=== PATIENT | female | born 1945 | race Caucasian/White ===

== ENCOUNTER 2016-11-07 09:53 | Day surgery (SDC) | payer MEDICARE, OTHER ==
[~2016-11-07 09:53] MED LIST: RINGERS SOLUTION,LACTATED 1,000 ML IV PRN
[2016-11-07] MEDS ORDERED: RINGERS SOLUTION,LACTATED 1,000 ML IV PRN (11:30)
[2016-11-07 12:33] VITALS: BP 127/45
--- NOTE | 2016-11-07 17:41 | OR ---
Operative Report - Dictated Report Narrative: OPERATIVE REPORT DATE OF OPERATION: 11/07/2016 PREOPERATIVE DIAGNOSIS: Familial polyposis, status post subtotal colectomy with ileostomy and Mary pouch POSTOPERATIVE DIAGNOSIS: Normal-appearing rectal pouch with the exception of mild benign appearing inflammation OPERATION: Flexible sigmoidoscopy SURGEON: Brook Gregory MD ANESTHESIA: NITIN Vaughan CRNA INDICATIONS FOR PROCEDURE: The patient is a 70-year-old female who is status post subtotal colectomy with ileostomy and Mary pouch performed for familial polyposis identified on colonoscopy in 2011. Her mother and brother both had colon cancer. The patient has had previous surveillance of the rectal stump in 2012 and 2014. FINDINGS: Benign appearing inflammation otherwise normal exam to 20 cm. NARRATIVE OF PROCEDURE: The patient was identified in the holding area, and prior to the administration of anesthetic, a multidisciplinary timeout was observed. With the patient in the left lateral position and after the administration of intravenous sedation, the perineum was inspected. There was no evidence of pilonidal disease or skin breakdown. The external appearance of the anus was normal. Sphincter tone was good. The flexible fiberoptic colonoscope was inserted into the rectum which was insufflated with air. There was mild inflammation and some residual mucus. The rectum and stump were then irrigated with saline. The scope was advanced proximally to the blind end of the Mary pouch. The scope was then slowly withdrawn and all mucosal surfaces were inspected. Aside from benign inflammation no polypoid changes or neoplastic-appearing lesions were observed. The area was irrigated and suctioned clean. The scope was removed and the procedure terminated. The patient tolerated the anesthetic and procedure well without complication and was transferred back to the ambulatory surgery area awake and in stable condition. The patient remained stable throughout a period of postoperative observation. She denied abdominal discomfort, was able to tolerate by mouth intake, and was up without assistance. I shared the operative findings with the patient and she was given copies of the photographs which appear in the medical record. She was discharged home with instructions not to engage in hazardous activity today , but may resume normal activity tomorrow, and advance diet as tolerated. She is to continue those medications as listed in the history and physical exam. RECOMMENDATION: Examination of the Mary pouch in 3 years depending upon findings and symptoms Reviewed and electronically signed
== END 2016-11-07 09:54 | disposition home or self-care (01) ==
LOC: AMB 09:53
PROVIDERS: ATTEND Surgery
PROC: 0DJD8ZZ Inspection of Lower Intestinal Tract, Via Natural or Artificial Opening Endoscopic (ICD-10-PCS; principal; 2016-11-07 10:15)
DX: Z12.11 Encounter for screening for malignant neoplasm of colon (principal); Z90.49 Acquired absence of other specified parts of digestive tract; I10 Essential (primary) hypertension; E11.9 Type 2 diabetes mellitus without complications; I25.10 Atherosclerotic heart disease of native coronary artery without angina pectoris; J45.909 Unspecified asthma, uncomplicated; K21.9 Gastro-esophageal reflux disease without esophagitis; Z80.0 Family history of malignant neoplasm of digestive organs; E66.01 Morbid (severe) obesity due to excess calories; Z68.42 Body mass index [BMI] 45.0-49.9, adult; Z87.891 Personal history of nicotine dependence; Z86.010 Personal history of colon polyps

== ENCOUNTER 2017-05-28 14:39 | Emergency (ER) | payer MEDICARE, OTHER ==
[2017-05-28 14:59] VITALS: BP 162/95
[2017-05-28] MEDS ORDERED: NAPROXEN SODIUM 550 MG TABLET PO ONE (16:07)
--- NOTE | 2017-05-28 16:14 | ERNOTE ---
Upper Extremity HPI - Narrative Date of Service: 05/28/17 - General Extremities Pain Location: shoulder: bilateral Time Seen by Provider: 05/28/17 15:22 Source: patient Exam Limitations: no limitations - Immun/Allergies/Home Medications Immunizations: IMMUNIZATION HX Immunizations Up to Date Yes Allergies/Adverse Reactions: Allergies Allergy/AdvReac Type Severity Reaction Status Date / Time Penicillins Allergy Severe Swelling Verified 11/07/16 10:27 of Tongue ertapenem sodium Allergy Mild Hives Verified 11/07/16 10:27 [From Invanz] enoxaparin sodium AdvReac Intermediate ulcers to Verified 11/07/16 10:27 [From Lovenox] abd, surgeries to debride heparin AdvReac Intermediate ULCERS, Verified 11/07/16 10:27 SURGERIES TO DEBRIDE etodolac [From Lodine] AdvReac Mild RASH Verified 11/07/16 10:27 meperidine HCl [From Demerol] AdvReac Mild UPSET Verified 11/07/16 10:27 STOMACH Home Medications: HOME MEDICATIONS Cetirizine HCl [Zyrtec] 10 mg PO HS 03/23/12 [Last Taken 01/20/14 21:00] Furosemide [Lasix] 20 mg PO DAILY 03/23/12 [Last Taken 01/20/14 09:00] Metoprolol Succinate [Toprol Xl] 50 mg PO BID 03/23/12 [Last Taken 06/05/15 07: 00] Albuterol Sulfate [Proair Hfa] 1 - 2 puff IH Q6H PRN 01/13/14 [Last Taken Unknown] Blood Sugar Diagnostic, Drum [Accu-Chek Compact Plus Strips] 1 each MC DAILY 09/21 [Last Taken 01/21/14 07:00] Calcium Carbonate/Vitamin D3 [Calcium 600 + Vit D 400 Tablet] 1 tab PO BID 01/13 [Last Taken 01/20/14 09:00] Fluticasone Propionate [Flonase] 2 spray NS DAILY PRN 01/13/14 [Last Taken 01/20 09:00] Docusate Sodium [Colace] 100 - 200 mg PO DAILY PRN 06/20/14 [Last Taken Unknown] Montelukast Sodium [Singulair] 10 mg PO HS 06/20/14 [Last Taken Unknown] Aspirin [Aspirin Enteric Coated] 325 mg PO DAILY 12/05/14 [Last Taken Unknown] Atorvastatin Calcium [Lipitor] 20 mg PO DAILY 05/22/15 [Last Taken Unknown] Ibuprofen [Motrin] 200 mg PO BID 05/22/15 [Last Taken Unknown] Ascorbic Acid [Vitamin C with Pearl Hips] 1,000 mg PO DAILY 10/31/16 [Last Taken Unknown] Cholecalciferol (Vitamin D3) [Vitamin D3] 1,000 unit PO DAILY 10/31/16 [Last Taken Unknown] Cyanocobalamin [Vitamin B-12] 1,000 mcg PO DAILY 10/31/16 [Last Taken Unknown] Fluticasone/Salmeterol [Advair 250-50 Diskus] 1 puff IH BID 10/31/16 [Last Taken Unknown] Multivitamins [Multivitamin Mikey] 1 cap PO DAILY 10/31/16 [Last Taken Unknown] Omeprazole Magnesium 20 mg PO DAILY 10/31/16 [Last Taken Unknown] Potassium 99 mg PO DAILY 10/31/16 [Last Taken Unknown] glipiZIDE [Glipizide] 5 mg PO DAILY 10/31/16 [Last Taken Unknown] Naproxen Sodium 275 mg PO BID #14 tablet 05/28/17 [Last Taken Unknown] - History of Present Illness Narrative: Pt presents with complaints of bilateral shoulder pain, left greater than right. She states he 2 months ago and she has been doing more lifting than usual which precipitated the pain. Denies any recent trauma or injury. Date (Duration): 05/14/17 Occurred: other - 2 weeks Location of Incident: home Severity: moderate Method of Injury: Reports: no apparent injury Modifying Factors - (Improves): Reports: immobilization Modifying Factors - (Worsens): Reports: movement Associated Symptoms: Denies: tingling, weakness, numbness distally, loss of feeling, loss of power (rt arm), loss of power (lt arm) Other Injuries: Reports: none Prior Treament: Reports: similar symptoms before Review of Systems - Review of Systems Constitutional: Present: no symptoms reported EYE: Present: no symptoms reported ENT: Present: no symptoms reported Respiratory: Present: no symptoms reported Cardiology: Present: no symptoms reported Gastrointestinal/Abdominal: Present: no symptoms reported Genitourinary: Present: no symptoms reported Musculoskeletal: Present: See HPI, joint pain Neurological: Present: no symptoms reported Endocrine: Present: no symptoms reported Hematologic/Lymphatic: Present: no symptoms reported Psych: Present: no symptoms reported - Patient's Past Medical History Patient History - Medical: Diabetes Type 2, GERD Patient History - Cardiac/Respiratory: Coronary Heart Disease, Hypertension, Hyperlipidemia Patient History - Cancer: Ovarian Patient History - Surgical Procedures: Cataracts, Colon Resection, Colonoscopy, Cardiac stent, EGD, Hysterectomy, Orthopedic Patient History - Other: None LMP (females 10-50): Menopausal - Family History Mother Family History - Medical: , Diabetes Type 2 Family History - Cardiac/Respiratory: Coronary Heart Disease, CVA/Stroke, Hypertension Family History - Cancer: Colon, Kidney Father Family History - Medical: , No pertinent hx Family History - Cardiac/Respiratory: Myocardial Infarction Family History - Cancer: No pertinent family hx Brother Family History - Medical: , No pertinent hx Family History - Cardiac/Respiratory: Myocardial Infarction Family History - Cancer: Colon - Social History Living Situations: home Abuse History: No History of abuse Psych History: No pertinent hx Smoking Status: Never smoker Alcohol Use: none Drug Use: none - Immunizations Immunizations Up to Date: Yes Physical Exam - Physical Exam General Appearance: Present: wd/wn, alert, no apparent distress, obese Head Exam: Present: normal inspection, no evidence of injury Eye Exam: Normal inspection: bilateral Ears, Nose, Throat: Present: normal ENT inspection Neck: Present: normal inspection Respiratory: Present: no respiratory distress, normal breath sounds, no accessory muscle use, chest nontender, lungs clear, decreased breath sounds Cardiovascular/Chest: Present: regular rate, rhythm, no murmur, normal peripheral pulses Gastrointestinal/Abdominal: Present: normal bowel sounds, nontender Back Exam: Present: normal inspection, normal range of motion, no vertebral tenderness Extremity Exam: Present: normal inspection, normal except -, other - pain with ROM. Limited ROM to left shoulder due to pain. Neurological Exam: Present: alert, oriented, normal mood/affect, no motor/ sensory deficits Skin Exam: Present: normal color, warm/dry Lymphatic Exam: Present: no adenopathy ED Progress - Vital Signs Patient's Vital Signs:: I have reviewed the patient's vital signs. Vital Signs: Vital Signs 05/28/17 14:51 Temperature 36.4 C L Pulse Rate 79 Respiratory 16 Rate Blood Pressure 162/95 - Progress/Reassessment Chief Complaint: Shoulder Injury/Pain Progress:: Unchanged Plan - Plan Plan: I suspect that this is due to arthritis as well and pain due to overuse given patients reports of having to lift their dog from floor to her bed since her husbands passing. She did not have any recent injury or falls which would warrant an xray, she will be DC's on a short NSAID with instructions to follow up with her PCP if she does not improve following treatment. Departure Clinical Impression: Arthritis Shoulder pain, bilateral Qualifiers: Chronicity: acute Qualified Code(s): M25.511 - Pain in right shoulder - Departure Disposition: Home self-care Condition: Good Instructions: Arthritis Additional Instructions: As discussed try to limit lifting of your animal. Rest and apply heat as needed to assist with comfort. Follow up with your primary care provider if your symptoms do not improve or worsen. Referrals: Kadi Dumont MD [Primary Care Provider] - Prescriptions: Naproxen Sodium 275 mg PO BID #14 tablet
[2017-05-28] MEDS ORDERED: NAPROXEN SODIUM 550 MG TABLET ONE (16:48)
== END 2017-05-28 16:50 | disposition home or self-care (01) ==
LOC: ER 14:39
DX: M25.512 Pain in left shoulder (principal); M25.511 Pain in right shoulder; M19.90 Unspecified osteoarthritis, unspecified site; Z85.43 Personal history of malignant neoplasm of ovary; Z95.5 Presence of coronary angioplasty implant and graft

== ENCOUNTER 2020-07-25 15:26 | Inpatient (IN) ==
[2020-07-25] MEDS ORDERED: NORMAL SALINE 1,000 ML IV ONE (15:58)
[2020-07-25] MEDS ORDERED: cefTRIAXone SODIUM 1,000 MG/100 ML BAG IV ONE (15:58)
[2020-07-25] MEDS ORDERED: AZITHROMYCIN 250 MG TABLET PO ONE (15:58)
[2020-07-25 16:17] LABS: Hematocrit 37.6 % (37.0-47.0); Hemoglobin 11.7 gm/dL (12.5-16.0); Mean Cell Volume 89.1 fl (78-100); Mean Corpuscular Hemoglobin 27.7 pg (27-31); Mean Corpuscular Hgb Conc 31.1 g/dl (32-36); Mean Platelet Volume 8.5 fl (8-12.5); Neutrophil % 86.3 % (42-75.0); Platelet Count 259 K/mm3 (150-450); Red Blood Count 4.22 M/mm3 (4.2-5.4); Red Cell Distribution Width 13.8 % (11.5-14.0); White Blood Count 5.8 K/mm3 (4.0-10.5)
[2020-07-25 16:35] LABS: Troponin I Less than 0.017 ng/mL (0.00-0.10)
[2020-07-25 16:38] LABS: ALT 31 U/L (19-67); AST 56 U/L (0-48); Albumin * 2.8 gm/dl (3.4-5.0); Alkaline Phosphatase * 120 U/L (50-170); Anion Gap 14.6 mmol/L (6.8-13.8); BNP * 139 pg/mL (5-325); BUN/Creatinine Ratio 11.1 (9.0-21.6); Bilirubin, Total 0.6 mg/dL (0.0-1.1); Blood Urea Nitrogen 13 mg/dL (3-23); CRP 12.5 mg/dL (0.0-0.9); Ca. Corrected For Albumin 9.5 mg/dL (8.4-10.2); Calcium * 8.9 mg/dL (7.9-10.9); Carbon Dioxide 27.1 mmol/L (24-32.6); Chloride 102 mmol/L (97-106); Glucose * 126 mg/dL (70-110); Potassium 3.7 mmol/L (3.4-4.6); Sodium 140 mmol/L (132-142); Total Protein 7.6 gm/dL (6.2-8.2)
--- NOTE | 2020-07-25 18:06 | ERNOTE ---
Dyspnea - Date Date of Service: 07/25/20 - General Presenting Symptoms: shortness of breath Time Seen by Provider: 07/25/20 15:44 Source: patient Exam Limitations: no limitations - Immun/Allergies/Home Medications Immunizations: IMMUNIZATION HX Immunizations Up to Date Yes Immunizations Comment Received full COVID vaccine History of Influenza Vaccine Yes Hx Pneumococcal Vaccination Yes Allergies/Adverse Reactions: Allergies Penicillins Allergy (Severe, Verified 07/25/20 15:53) Swelling of Tongue ertapenem sodium [From Invanz] Allergy (Mild, Verified 07/25/20 15:53) Hives grass pollen Allergy (Verified 07/25/20 15:53) rhinitis house dust Allergy (Verified 07/25/20 15:53) rhinitis mold Allergy (Verified 07/25/20 15:53) rhinitis enoxaparin sodium [From Lovenox] Adverse Reaction (Intermediate, Verified 07/25/20 15:53) ulcers to abd, surgeries to debride heparin Adverse Reaction (Intermediate, Verified 07/25/20 15:53) ULCERS, SURGERIES TO DEBRIDE etodolac [From Lodine] Adverse Reaction (Mild, Verified 07/25/20 15:53) RASH meperidine HCl [From Demerol] Adverse Reaction (Mild, Verified 07/25/20 15:53) UPSET STOMACH Home Medications: HOME MEDICATIONS Cetirizine HCl [Zyrtec] 10 mg PO HS 03/23/12 [Last Taken 01/20/14 21:00] Furosemide [Lasix] 20 mg PO DAILY 03/23/12 [Last Taken 01/20/14 09:00] Albuterol Sulfate [Proair Hfa] 1 - 2 puff IH Q6H PRN 01/13/14 [Last Taken Unknown] Blood Sugar Diagnostic, Drum [Accu-Chek Compact Plus Strips] 1 ea MC DAILY 01/13/14 [Last Taken 01/21/14 07:00] Calcium Carbonate/Vitamin D3 [Calcium 600 + Vit D 400 Tablet] 1 tab PO BID 01/13/14 [Last Taken 01/20/14 09:00] Montelukast Sodium [Singulair] 10 mg PO HS 06/20/14 [Last Taken Unknown] Aspirin [Aspirin Enteric Coated] 325 mg PO DAILY 12/05/14 [Last Taken Unknown] Atorvastatin Calcium [Lipitor] 20 mg PO DAILY 05/22/15 [Last Taken Unknown] Ibuprofen [Motrin] 200 mg PO BID PRN 05/22/15 [Last Taken Unknown] Ascorbic Acid [Vitamin C with Pearl Hips] 1,000 mg PO DAILY 10/31/16 [Last Taken Unknown] Cholecalciferol (Vitamin D3) [Vitamin D3] 1,000 unit PO DAILY 10/31/16 [Last Taken Unknown] Cyanocobalamin [Vitamin B-12] 1,000 mcg PO DAILY 10/31/16 [Last Taken Unknown] Multivitamins [Multivitamin Mikey] 1 cap PO DAILY 10/31/16 [Last Taken Unknown] Omeprazole Magnesium 20 mg PO DAILY 10/31/16 [Last Taken Unknown] Potassium 99 mg PO DAILY 10/31/16 [Last Taken Unknown] metoprolol succinate 50 mg tablet,extended release 24 hr 50 mg PO DAILY 01/08/19 [Last Taken Unknown] vit C-vit Y-hhbkzo-deljtqsq-omega 3 100 mg-15 unit-2 mg-100 mg capsule 1 cap PO DAILY cap 05/20/19 [Last Taken Unknown] fluticasone propionate 50 mcg/actuation nasal spray,suspension 1 spray REGGIE DAILY PRN 06/27/19 [Last Taken Unknown] Levofloxacin [Levaquin] 750 mg PO DAILY #5 tab 07/23/20 [Last Taken Unknown] - History of Present Illness Narrative: This patient is a 74-year-old female who is here with shortness of breath. She began having shortness of breath about a week ago. She has a chronic cough due to asthma. She was seen here 2 days ago and the chest x-ray showed an infiltrate. She was started on Levaquin and has gotten worse. She does not have a fever. She continues to cough. She was reported to be 84% on room air. She cannot tell if she is wheezing. She has chest pain with coughing. Review of Systems - Review of Systems Constitutional: Present: malaise. Absent: fever, weight loss EYE: Absent: blurred vision, double vision ENT: Present: ear pain - Right. Absent: nose congestion, nasal drainage, sore throat Respiratory: Present: shortness of breath, cough. Absent: wheezing Cardiology: Present: chest pain - With cough. Absent: palpitations, syncope Gastrointestinal/Abdominal: Absent: nausea, vomiting, diarrhea, constipation, abdominal pain Genitourinary: Absent: frequency, pain, dysuria, hematuria Musculoskeletal: Absent: back pain, neck pain, joint pain Skin: Absent: rash Neurological: Present: headache - With cough, tingling - When she sits on her hands Endocrine: Present: other - No diabetes Hematologic/Lymphatic: Present: other - No active bleeding Psych: Present: depressed - She is tired of being sick and wants to feel better Medical History (Last Reviewed 07/25/20 @ 18:42 by Jaydon King MD) Familial polyposis Hyperlipidemia Ulcer Onset Date: ~11/06/12 multipule, of abdomen Venous insufficiency Onset Date: ~08/12/11 improved Coronary artery disease Diabetes mellitus Onset Date: ~01/04/12 type II. Essential hypertension Gastroesophageal reflux Knee pain bilateral Morbid obesity Sleep apnea Onset Date: ~11/27/15 Sleep apnea, obstructive Onset Date: ~2015 Cataract Onset Date: ~03/23/12 Personal history of ovarian cancer Cellular epithilioid, left Thumb pain left Surgical History: Surgical History (Last Reviewed 07/25/20 @ 18:42 by Jaydon King MD) H/O arthroscopic knee surgery Onset Date: ~1997 left H/O cardiac catheterization Onset Date: 08/01/08 left H/O ileostomy Onset Date: 07/10/12 Dr Padilla-[facility]- endo ileostomy for familial polyposis History of appendectomy Onset Date: ~1957 History of cataract surgery Onset Date: 03/2012, 03/2012 History of cholecystectomy Onset Date: ~1979 [place] History of colectomy Onset Date: 07/10/12 Dr Padilla-[facility]--total History of colonoscopy Onset Date: 01/09/12 01/09/12 [place]-innumerable polyps. Referred to [facility] History of flexible sigmoidoscopy Onset Date: 01/07/20 [place]-01/07/13 granulation tissue w/chronic inflammation. 12/19/14 mild irritation. Recheck 1-2 yrs. 11/07/16 benign appearing inflammation. Recheck 3 yrs to exam Mary pouch. 01/07/20 [place]-moderate active chronic colitis. Recheck 3 yrs. History of heart artery stent Onset Date: ~2008 [facility] History of incision and drainage Onset Date: 05/17/16 05/17/16 [place]-abscess right side of neck. History of knee replacement Onset Date: 06/23/14 bilateral. 01/21/14 Dr. G[place]. 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 S/P debridement Onset Date: 12/05/12 [place]-11/12/12, 12/05/12-of necrotic tissue/ulcers of the anterior abdominal wall. Placement of wound vac. 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 [employer] Highest level of school completed/degree received: high school graduate Service: No Tobacco: Smoking Status: Former smoker Alcohol: alcohol intake: never Substance Use: substance use type: does not use Dietary Habits: caffeine: Yes Personal Safety: victim of physical abuse: No victim of emotional abuse: No Physical Exam - Physical Exam General Appearance: Present: alert, no apparent distress, obese Head Exam: Present: normal inspection, no evidence of injury Eye Exam: Normal inspection: bilateral Ears, Nose, Throat: Present: normal ENT inspection Neck: Present: normal inspection, supple Respiratory: Present: respiratory distress - Tachypnea, decreased breath sounds Cardiovascular/Chest: Present: no murmur, tachycardia Gastrointestinal/Abdominal: Present: normal bowel sounds, nontender, nondistended, soft, no organomegaly Extremity Exam: Present: normal inspection, non-tender Neurological Exam: Present: alert, oriented, normal mood/affect, no motor/sensory deficits Skin Exam: Present: normal color, warm/dry Progress - Date and Time Seen: Date and Time: 07/25/20 19:12 The results of the CT and Covid testing were discussed with the patient. Dr. Courtney agreed to admit the patient. - Results and Orders Patient's Lab Results:: I have reviewed the patient's lab results. Results and Orders: Laboratory Tests 07/25/20 07/25/20 07/25/20 16:05 16:05 16:05 WBC RBC Hgb Hct MCV MCH MCHC RDW Plt Count MPV Immature Gran % (Auto) Immature Gran # (Auto) Neutrophils % Lymphocytes % Monocytes % Eosinophils % Basophils % Nucleated RBC % Neutrophils # Lymphocytes # Monocytes # Eosinophils # Absolute Basophils D-Dimer 0.95 H Sodium 140 Plasma Sodium 140 Potassium 3.7 Chloride 102 Carbon Dioxide 27.1 Anion Gap 14.6 H BUN 13 Creatinine 1.17 Est GFR (Non-Af Amer) 48 L BUN/Creatinine Ratio 11.1 Random Glucose 126 H Lactic Acid, Venous Calcium 8.9 Calcium Adj for Albumin 9.5 Total Bilirubin 0.6 AST 56 H ALT 31 Alkaline Phosphatase 120 Troponin I Less than 0.017 C-Reactive Prot, Quant 12.5 H B-Natriuretic Peptide 139 Total Protein 7.6 Albumin 2.8 L Procalcitonin Less than 0.05 L 07/25/20 07/25/20 16:05 16:15 WBC 5.8 RBC 4.22 Hgb 11.7 L Hct 37.6 MCV 89.1 MCH 27.7 MCHC 31.1 L RDW 13.8 Plt Count 259 MPV 8.5 Immature Gran % (Auto) 0.50 H Immature Gran # (Auto) 0.03 Neutrophils % 86.3 H Lymphocytes % 7.1 L Monocytes % 5.9 Eosinophils % 0.2 Basophils % 0.0 Nucleated RBC % 0.0 Neutrophils # 5.0 Lymphocytes # 0.41 L Monocytes # 0.3 Eosinophils # 0.0 Absolute Basophils 0.0 D-Dimer Sodium Plasma Sodium Potassium Chloride Carbon Dioxide Anion Gap BUN Creatinine Est GFR (Non-Af Amer) BUN/Creatinine Ratio Random Glucose Lactic Acid, Venous 1.9 Calcium Calcium Adj for Albumin Total Bilirubin AST ALT Alkaline Phosphatase Troponin I C-Reactive Prot, Quant B-Natriuretic Peptide Total Protein Albumin Procalcitonin Laboratory Tests 07/25/20 17:29 SARS-CoV-2 (PCR) Detected H - Vital Signs Patient's Vital Signs:: I have reviewed the patient's vital signs. Vital Signs: Vital Signs 07/25/20 15:37 07/25/20 15:55 07/25/20 17:23 Temperature 36.7 C Pulse Rate 98 105 H 99 Respiratory Rate 40 H 34 H 34 H Blood Pressure 147/68 154/68 H 146/71 O2 Sat by Pulse Oximetry 84 L 98 97 07/25/20 17:53 Temperature Pulse Rate 81 Respiratory Rate 22 H Blood Pressure 149/93 H O2 Sat by Pulse Oximetry 100 - EKG EKG #1 EKG read: Interp. by me EKG Comments: 15: 41 Sinus tachycardia Rate 111 Nonspecific changes Inferior Q waves Compared to an EKG from 07/23/2020, the rate is faster. - X-Ray X-Ray #1 X-Ray: chest Interpretation: Reviewed by me X-ray Comments: Chest PA & Lateral *~ Exam Date: 07/25/2020 16:30 Ordering Physician: Jaydon King MD HISTORY: short of breath. History of ovarian cancer. 2 VIEW CHEST Comparison: 07/23/2020, 01/18/2016 Technique: Upright frontal and lateral views of the chest were obtained. Findings: The cardiac silhouette is within normal limits of size. The mediastinum and hilum are with in normal limits and unchanged. There are scattered pulmonary nodules within the lung ceballos. Additionally, there is suggestion of subtle infiltrates. I do not see evidence for pleural effusion. I do not see evidence for definable acute osseous abnormality on this chest film. IMPRESSION: 1. BILATERAL PULMONARY NODULES. 2. SUGGESTION OF SUBTLE BILATERAL PULMONARY INFILTRATES Electronically signed by Yunier Morris M.D.. - CT/Ultrasound CT/Ultrasound Narrative: CTA Chest~ Exam Date: 07/25/2020 17:06 Ordering Physician: Jaydon King MD HISTORY: Hypoxia, elevated D-dimer ENHANCED CT SCAN OF CHEST USING A PULMONARY EMBOLUS PROTOCOL COMPARISON: NONE Technique: Multiple thin axial CT images were obtained through the chest during the rapid infusion of intravenous contrast as per pulmonary angiographic protocol. Coronal maximum intensity projection ( MIP) image sets / 3-D postprocessing was obtained. Individualized dose optimization technique was used for the performed procedure including automated exposure control, adjustment of the mA and/or kV according to patient size and/or the iterative reconstruction technique. Findings: Patient large body habitus. I do not see evidence for axillary adenopathy. There are small lymph nodes in the mediastinum without definable adenopathy. There are borderline lymph nodes in the hilum. Is a enlarged lymph node in the right parae sophageal region. There is good opacification of the thoracic aorta. There is cardiac motion involving the aortic root and streak artifact from contrast in the adjacent superior vena cava. I do not see evidence for aneurysm. I do not see evidence for dissection involving the aortic arch or descending thoracic aorta There is moderate coronary artery calcification, which particularly involves the LAD. The heart is of normal size. I do not see evidence for significant pericardial effusion. The esophagus is grossly normal. The spleen and visualized liver appear homogeneous. The adrenal glands are within normal limits. There is reasonably good opacification of pulmonary arteries. I do not see evidence for definable filling defect to suggest pulmonary embolus. There is diffuse patchy groundglass infiltrates within the lung ceballos. In addition, there are multiple noncalcified pulmonary nodules, concerning for metastasis. No evidence of pleural effusion. Bone windows demonstrate no definable acute osseous abnormality, osteoblastic lesion, or osteolytic lesion. IMPRESSION: 1. NO EVIDENCE FOR PULMONARY EMBOLUS. 2. BORDERLINE LYMPH NODES IN THE HILUM AND ENLARGED LYMPH NODE IN THE RIGHT PARAESOPHAGEAL REGION. 3. MODERATE CORONARY ARTERY CALCIFICATION, PARTICULARLY INVOLVING THE LAD. 4. DIFFUSE GROUNDGLASS PATCHY INFILTRATES, SUGGESTING INFLAMMATORY/INFECTIOUS PROCESS SUCH COVID 19. 5. SCATTERED DIFFUSE NONCALCIFIED PULMONARY NODULES, CONCERNING FOR METASTASIS. 6. CLINICAL CORRELATION REQUIRED. Electronically signed by Yunier Morris M.D.. - Progress/Reassessment Chief Complaint: Dyspnea Departure Clinical Impression: COVID-19, Pulmonary nodules, Hypoxemia - Departure Disposition: Still a patient Condition: Fair
[2020-07-25] MEDS ORDERED: DEXAMETHASONE SODIUM PHOSP/PF 10 MG/ML VIAL IV ONE (19:05)
[2020-07-25] MEDS ORDERED: ASPIRIN 81 MG TAB.CHEW PO ONE (19:08)
[2020-07-26] MEDS: FUROSEMIDE 20 MG TABLET PO SCH (10:02)
[2020-07-26] MEDS: ASPIRIN 325 MG TABLET.DR PO SCH (10:02)
[2020-07-26] MEDS: DEXAMETHASONE 2 MG TABLET PO SCH (10:02)
[2020-07-26] MEDS: ALBUTEROL SULFATE 200 PUFF INHALER IH PRN ×2 (10:02→20:23)
[2020-07-26] MEDS: METOPROLOL SUCCINATE 50 MG TABLET.SA PO SCH (10:02)
[2020-07-26] MEDS: PANTOPRAZOLE SODIUM 20 MG TABLET.DR PO SCH (10:02)
--- NOTE | 2020-07-26 12:20 | HP ---
Chief Complaint - Chief Complaint Date of Service: 07/26/20 Time of Service: 12:08 Chief Complaint: Cough, hypoxia History of Present Illness: 74-year-old female with history of diabetes, hypertension, hyperlipidemia, morbid obesity, sleep apnea presented to the ER for worsening shortness of breath and cough. Patient previously seen 2 days earlier for same issue and x- ray at that time showed subtle consolidation of the left lung consistent with pneumonia patient was started on Levaquin. Patient did not improve after being discharged in the ER return 2 days later for the same concerns. Covid test was obtained at this time which came back positive. Patient initially was satting at 84% but this improved with 2 L of oxygen via nasal cannula. Patient was given Decadron in the ER. Patient has sensitivity to Lovenox and so this was n ot given the patient was instead given a full-strength aspirin. Due to her sensitivity Lovenox, heparin was probably not a great choice either. Patient's other vital signs are stable in the ER. Patient had no white count, negative procalcitonin lab. Her CHEM panel showed her to have a GFR of 48 and creatinine of 1.17. She had a negative troponin. She had an elevated CRP 12.5. Her D- dimer also came back elevated which is not surprising due to the Covid infection by CT scan of her chest to rule out embolus was ordered and obtained which was negative for any acute pulmonary events. Patient was admitted for Covid 19 pneumonia. Medical History (Last Reviewed 07/25/20 @ 18:42 by Jaydon King MD) Familial polyposis Hyperlipidemia Ulcer Onset Date: ~11/06/12 multipule, of abdomen Venous insufficiency Onset Date: ~08/12/11 improved Coronary artery disease Diabetes mellitus Onset Date: ~01/04/12 type II. Essential hypertension Gastroesophageal reflux Knee pain bilateral Morbid obesity Sleep apnea Onset Date: ~11/27/15 Sleep apnea, obstructive Onset Date: ~2015 Cataract Onset Date: ~03/23/12 Personal history of ovarian cancer Cellular epithilioid, left Thumb pain left Surgical History: Surgical History (Last Reviewed 07/25/20 @ 18:42 by Jaydon King MD) H/O arthroscopic knee surgery Onset Date: ~1997 left H/O cardiac catheterization Onset Date: 08/01/08 left H/O ileostomy Onset Date: 07/10/12 Dr Padilla-[facility]- endo ileostomy for familial polyposis History of appendectomy Onset Date: ~1957 History of cataract surgery Onset Date: 03/2012, 03/2012 History of cholecystectomy Onset Date: ~1979 [place] History of colectomy Onset Date: 07/10/12 Dr Padilla-[facility]--total History of colonoscopy Onset Date: 01/09/12 01/09/12 [place]-innumerable polyps. Referred to [facility] History of flexible sigmoidoscopy Onset Date: 01/07/20 [place]-01/07/13 granulation tissue w/chronic inflammation. 12/19/14 mild irritation. Recheck 1-2 yrs. 11/07/16 benign appearing inflammation. Recheck 3 yrs to exam Mary pouch. 01/07/20 [place]-moderate active chronic colitis. Recheck 3 yrs. History of heart artery stent Onset Date: ~2008 [facility] History of incision and drainage Onset Date: 05/17/16 05/17/16 [place]-abscess right side of neck. History of knee replacement Onset Date: 06/23/14 bilateral. 01/21/14 Dr. Galeas. 06/23/14 [place] History of oral surgery Onset Date: ~05/2016 bottom teeth removed/[place] History of partial hysterectomy Onset Date: ~1985 [facility]-ilq-wmxi ovaries History of salpingo-oophorectomy Onset Date: 07/10/12 [facility]-zuuwyslgx-wzzdtorl epithelioid neoplasm History of tooth extraction Onset Date: ~05/2016 Hx of esophagogastroduodenoscopy Onset Date: 01/07/13 01/07/13 [facility]-clotest negative, chemical irritation pattern gastropathy, hiatal hernia. S/P debridement Onset Date: 12/05/12 [place]-11/12/12, 12/05/12-of necrotic tissue/ulcers of the anterior abdominal wall. Placement of wound vac. Family History: Family History (Last Reviewed 07/25/20 @ 18:42 by Jaydon King MD) Father , age 74 Heart disease Myocardial infarction Mother , age 82 Heart disease Hypertension CVA (cerebral vascular accident) Diabetes Cancer kidney and colon Brother , age 56-[place] Myocardial infarction Brother History of colon surgery 1 brother-possible for polyps Cancer 1 brother-colon ca (unknown age dx) Social History: (Last Reviewed 07/25/20 @ 18:42 by Jaydon King MD) Social History: care home: No Marital status: / household members: other number of children: 3 current occupational status: retired current occupation: retired [employer] Highest level of school completed/degree received: high school graduate Service: No Tobacco: Smoking Status: Former smoker Alcohol: alcohol intake: never Substance Use: substance use type: does not use Dietary Habits: caffeine: Yes Personal Safety: victim of physical abuse: No victim of emotional abuse: No Review Of Systems (GEN) - Review of Systems Generalized/Overall Review: Present: Weakness. Absent: Chills, Fever EENTM: Present: No Symptoms Reported Respiratory: Present: Cough, Shortness of Breath, Wheezing Cardiac: Absent: Chest Pain, Edema, Palpitations Abdominal: Absent: Nausea, Vomiting Genitourinary: Present: No Symptoms Reported Musculoskeletal: Present: No Symptoms Reported Neurological: Present: No Symptoms Reported Skin: Present: No Symptoms Reported Endocrine: Present: No Symptoms Reported Immunizations: IMMUNIZATION HX Immunizations Up to Date Yes Immunizations Comment Received full COVID vaccine History of Influenza Vaccine Yes Hx Pneumococcal Vaccination Yes Allergies/Adverse Reactions: Allergies Allergy/AdvReac Type Severity Reaction Status Date / Time Penicillins Allergy Severe Swelling Verified 07/25/20 15:53 of Tongue ertapenem sodium Allergy Mild Hives Verified 07/25/20 15:53 [From Invanz] grass pollen Allergy rhinitis Verified 07/25/20 15:53 house dust Allergy rhinitis Verified 07/25/20 15:53 mold Allergy rhinitis Verified 07/25/20 15:53 enoxaparin sodium AdvReac Intermediate ulcers to Verified 07/25/20 15:53 [From Lovenox] abd, surgeries to debride heparin AdvReac Intermediate ULCERS, Verified 07/25/20 15:53 SURGERIES TO DEBRIDE etodolac [From Lodine] AdvReac Mild RASH Verified 07/25/20 15:53 meperidine HCl [From Demerol] AdvReac Mild UPSET Verified 07/25/20 15:53 STOMACH Home Medications: HOME MEDICATIONS Cetirizine HCl [Zyrtec] 10 mg PO HS 03/23/12 [Last Taken 01/20/14 21:00] Furosemide [Lasix] 20 mg PO DAILY 03/23/12 [Last Taken 01/20/14 09:00] Albuterol Sulfate [Proair Hfa] 1 - 2 puff IH Q6H PRN 01/13/14 [Last Taken Unknown] Blood Sugar Diagnostic, Drum [Accu-Chek Compact Plus Strips] 1 ea MC DAILY 01/13/14 [Last Taken 01/21/14 07:00] Calcium Carbonate/Vitamin D3 [Calcium 600 + Vit D 400 Tablet] 1 tab PO BID 01/13/14 [Last Taken 01/20/14 09:00] Montelukast Sodium [Singulair] 10 mg PO HS 06/20/14 [Last Taken Unknown] Aspirin [Aspirin Enteric Coated] 325 mg PO DAILY 12/05/14 [Last Taken Unknown] Atorvastatin Calcium [Lipitor] 20 mg PO DAILY 05/22/15 [Last Taken Unknown] Ibuprofen [Motrin] 200 mg PO BID PRN 05/22/15 [Last Taken Unknown] Ascorbic Acid [Vitamin C with Pearl Hips] 1,000 mg PO DAILY 10/31/16 [Last Taken Unknown] Cholecalciferol (Vitamin D3) [Vitamin D3] 1,000 unit PO DAILY 10/31/16 [Last Taken Unknown] Cyanocobalamin [Vitamin B-12] 1,000 mcg PO DAILY 10/31/16 [Last Taken Unknown] Multivitamins [Multivitamin Mikey] 1 cap PO DAILY 10/31/16 [Last Taken Unknown] Omeprazole Magnesium 20 mg PO DAILY 10/31/16 [Last Taken Unknown] Potassium 99 mg PO DAILY 10/31/16 [Last Taken Unknown] metoprolol succinate 50 mg tablet,extended release 24 hr 50 mg PO DAILY 01/08/19 [Last Taken Unknown] vit C-vit S-jlcrnb-gqmrzlzd-omega 3 100 mg-15 unit-2 mg-100 mg capsule 1 cap PO DAILY cap 05/20/19 [Last Taken Unknown] fluticasone propionate 50 mcg/actuation nasal spray,suspension 1 spray REGGIE DAILY PRN 06/27/19 [Last Taken Unknown] Levofloxacin [Levaquin] 750 mg PO DAILY #5 tab 07/23/20 [Last Taken Unknown] Exam - Exam Vital Signs: Vital Signs - Last Taken Temp 36.8 C 07/26/20 09:00 Pulse 96 07/26/20 10:02 Resp 24 H 07/26/20 09:00 BP 108/67 07/26/20 10:02 Pulse Ox 97 07/26/20 09:00 Constitutional: Present: Alert, Oriented x3, Cooperative, No distress, Elderly ENT Exam: Present: hearing grossly normal. Absent: nasal congestion, nasal drainage Eye Exam: bilateral eye: normal inspection, EOMI Neck: Present: non-tender, supple Respiratory: Present: lungs clear, normal breath sounds, no respiratory distress Cardiovascular/Chest: Present: regular rate, rhythm, no murmur Abdomen: Present: soft, nontender, nondistended Skin Exam: Present: normal color, warm/dry Neurologic: Present: alert, oriented x 3 Appearance: Present: appropriate appearance, appropriate insight Eye contact: Present: cooperative, good eye contact Thoughts: Present: normal thought pattern, normal mood /affect Diagnostic Studies: Abnormal Lab Results 07/25/20 07/25/20 07/25/20 Range/Units 16:05 16:05 16:05 Hgb (12.5-16.0) gm/dL MCHC (32-36) g/dl Immature Gran % (Auto) (0.001-0.429) % Neutrophils % (42-75.0) % Lymphocytes % (20-51) % Lymphocytes # (1.5-3.5) k/mm3 D-Dimer 0.95 H (0.19-0.49) ugFEU/mL Anion Gap 14.6 H (6.8-13.8) mmol/L Est GFR (Non-Af Amer) 48 L (60-130) mL/min Random Glucose 126 H (70-110) mg/dL AST 56 H (0-48) U/L C-Reactive Prot, Quant 12.5 H (0.0-0.9) mg/dL Albumin 2.8 L (3.4-5.0) gm/dl Procalcitonin Less than 0.05 L (0.05-0.50) ng/mL SARS-CoV-2 (PCR) (NotDetected) 07/25/20 07/25/20 Range/Units 16:15 17:29 Hgb 11.7 L (12.5-16.0) gm/dL MCHC 31.1 L (32-36) g/dl Immature Gran % (Auto) 0.50 H (0.001-0.429) % Neutrophils % 86.3 H (42-75.0) % Lymphocytes % 7.1 L (20-51) % Lymphocytes # 0.41 L (1.5-3.5) k/mm3 D-Dimer (0.19-0.49) ugFEU/mL Anion Gap (6.8-13.8) mmol/L Est GFR (Non-Af Amer) (60-130) mL/min Random Glucose (70-110) mg/dL AST (0-48) U/L C-Reactive Prot, Quant (0.0-0.9) mg/dL Albumin (3.4-5.0) gm/dl Procalcitonin (0.05-0.50) ng/mL SARS-CoV-2 (PCR) Detected H (NotDetected) Laboratory Results WBC 5.8 K/mm3 (4.0-10.5) 07/25/20 16:15 RBC 4.22 M/mm3 (4.2-5.4) 07/25/20 16:15 Hgb 11.7 gm/dL (12.5-16.0) L 07/25/20 16:15 Hct 37.6 % (37.0-47.0) 07/25/20 16:15 MCV 89.1 fl (78-100) 07/25/20 16:15 MCH 27.7 pg (27-31) 07/25/20 16:15 MCHC 31.1 g/dl (32-36) L 07/25/20 16:15 RDW 13.8 % (11.5-14.0) 07/25/20 16:15 Plt Count 259 K/mm3 (150-450) 07/25/20 16:15 MPV 8.5 fl (8-12.5) 07/25/20 16:15 Immature Gran % (Auto) 0.50 % (0.001-0.429) H 07/25/20 16:15 Immature Gran # (Auto) 0.03 K/mm3 (0.000-0.0310) 07/25/20 16:15 Neutrophils % 86.3 % (42-75.0) H 07/25/20 16:15 Lymphocytes % 7.1 % (20-51) L 07/25/20 16:15 Monocytes % 5.9 % (0.0-9) 07/25/20 16:15 Eosinophils % 0.2 % (0.0-3.0) 07/25/20 16:15 Basophils % 0.0 % (0.0-1.0) 07/25/20 16:15 Nucleated RBC % 0.0 k/mm3 (0-1) 07/25/20 16:15 Neutrophils # 5.0 K/mm3 (1.3-6.0) 07/25/20 16:15 Lymphocytes # 0.41 k/mm3 (1.5-3.5) L 07/25/20 16:15 Monocytes # 0.3 k/mm3 (0.0-1.0) 07/25/20 16:15 Eosinophils # 0.0 k/mm3 (0.0-0.7) 07/25/20 16:15 Absolute Basophils 0.0 k/mm3 (0.0-0.1) 07/25/20 16:15 D-Dimer 0.95 ugFEU/mL (0.19-0.49) H 07/25/20 16:05 Sodium 140 mmol/L (132-142) 07/25/20 16:05 Plasma Sodium 140 mmol/L (130-142) 07/25/20 16:05 Potassium 3.7 mmol/L (3.4-4.6) 07/25/20 16:05 Chloride 102 mmol/L (97-106) 07/25/20 16:05 Carbon Dioxide 27.1 mmol/L (24-32.6) 07/25/20 16:05 Anion Gap 14.6 mmol/L (6.8-13.8) H 07/25/20 16:05 BUN 13 mg/dL (3-23) 07/25/20 16:05 Creatinine 1.17 mg/dL (0.4-1.4) 07/25/20 16:05 Est GFR (Non-Af Amer) 48 mL/min (60-130) L 07/25/20 16:05 BUN/Creatinine Ratio 11.1 (9.0-21.6) 07/25/20 16:05 Random Glucose 126 mg/dL (70-110) H 07/25/20 16:05 Lactic Acid, Venous 1.9 mmol/L (0.4-2.0) 07/25/20 16:05 Calcium 8.9 mg/dL (7.9-10.9) 07/25/20 16:05 Calcium Adj for Albumin 9.5 mg/dL (8.4-10.2) 07/25/20 16:05 Total Bilirubin 0.6 mg/dL (0.0-1.1) 07/25/20 16:05 AST 56 U/L (0-48) H 07/25/20 16:05 ALT 31 U/L (19-67) 07/25/20 16:05 Alkaline Phosphatase 120 U/L (50-170) 07/25/20 16:05 Troponin I Less than 0.017 ng/mL (0.00-0.10) 07/25/20 16:05 C-Reactive Prot, Quant 12.5 mg/dL (0.0-0.9) H 07/25/20 16:05 B-Natriuretic Peptide 139 pg/mL (5-325) 07/25/20 16:05 Total Protein 7.6 gm/dL (6.2-8.2) 07/25/20 16:05 Albumin 2.8 gm/dl (3.4-5.0) L 07/25/20 16:05 Procalcitonin Less than 0.05 ng/mL (0.05-0.50) L 07/25/20 16:05 SARS-CoV-2 (PCR) Detected (NotDetected) H 07/25/20 17:29 Assessment/Plan - Narrative Narrative: 74-year-old female was admitted to the hospital due to hypoxia secondary to COVID-19 pneumonia. Patient received dose of Decadron in the ER. Patient will have Decadron continued for a total of 7 days. Patient only on aspirin for anticoagulation due to sensitivity to Lovenox with adverse reactions in the past. SCDs ordered for DVT prophylaxis. O2 ordered to keep patient sats above 90% but will wean to baseline once her respiratory distress subsides. Patient did receive a dose of antibiotics in the ER due to possible pneumonia before her COVID-19 test returned, this would not be continued. Spirometry ordered. Will resume her albuterol inhaler to be used as needed but her lungs sounded good today without any wheezing. Her lab work was unremarkable and so this likely 90 to be continued and that she has an acute change in clinical picture. Chest x-ray consistent with Covid pneumonia with the stay. There is also pulmonary nodules seen on her x-ray which will need to be addressed in an outpatient setting but will discuss this with the patient prior to being discharged. Patient's hypoxia resolved with O2 administration. Her vital signs been stable otherwise she has been afebrile. Chronic medications resumed. Patient is not currently on diabetic medication but has diabetes and her history. Will order blood sugar monitoring but not currently on any medication and so no sliding scale ordered at this time and that she is hyperglycemic. Patient when examined today was feeling better and had no concerns. Nurse will call with any questions or concerns that may arise. Order Tylenol as needed for fevers or aches. 1 hour critical care time spent with patient, evaluating history, determining treatment plan, placing orders, and dictating this note. - Assessment/Plan (1) COVID-19 Problem: Acute (2) Hypoxemia Problem: Acute (3) Hypertension Problem: Acute (4) Diabetes Problem: Acute (5) Hyperlipidemia Problem: Acute
[2020-07-26] MEDS: MONTELUKAST SODIUM 10 MG TABLET PO SCH (20:16)
[2020-07-26] MEDS: LORATADINE 10 MG TABLET PO SCH (20:16)
[2020-07-26] MEDS: ROSUVASTATIN CALCIUM 10 MG TABLET PO SCH (20:17)
[2020-07-27] MEDS: DEXAMETHASONE 2 MG TABLET PO SCH (08:39)
[2020-07-27] MEDS: ASPIRIN 325 MG TABLET.DR PO SCH (08:39)
[2020-07-27] MEDS: PANTOPRAZOLE SODIUM 20 MG TABLET.DR PO SCH (08:39)
[2020-07-27] MEDS: FUROSEMIDE 20 MG TABLET PO SCH (08:40)
[2020-07-27] MEDS: METOPROLOL SUCCINATE 50 MG TABLET.SA PO SCH (08:40)
[2020-07-27] MEDS: ALBUTEROL SULFATE 200 PUFF INHALER IH PRN (08:43)
[2020-07-27] MEDS: ACETAMINOPHEN 325 MG TABLET PO PRN (16:44)
--- NOTE | 2020-07-27 21:47 | PN ---
Subjective - Date and Time Seen Date: 07/27/20 Time: 21:42 Subjective Narrative: Tatum was seen this morning for follow-up on her hypoxia and shortness of breath. Patient with COVID-19 infection. No acute events overnight and her breathing is improving though she does get short of breath when she coughs. She has been afebrile. The rest of her vital signs are stable. She is satting well on 1 to 2 L of oxygen via nasal cannula. She is also receiving Decadron and full-strength aspirin. Objective - Review of Systems Generalized/Overall Review: Denies: Weakness, Chills, Fever EENTM: Reports: No Symptoms Reported Respiratory: Reports: Cough, Shortness of Breath Cardiac: Reports: No Symptoms Reported Abdominal: Reports: No Symptoms Reported Genitourinary Symptoms: Reports: No Symptoms Reported Musculoskeletal Complaints: Reports: No Symptoms Reported Neurological: Reports: No Symptoms Reported Skin: Reports: No Symptoms Reported Endocrine: Reports: No Symptoms Reported - Vitals Vitals: Last Vital Signs Temp 36.7 C 07/27/20 19:23 Pulse 92 07/27/20 19:23 Resp 18 07/27/20 19:23 BP 124/67 07/27/20 19:23 Pulse Ox 97 07/27/20 19:23 - Exam Constitutional: Present: Alert, Oriented x3, Elderly, Obese ENT Exam: Present: hearing grossly normal Neck: Present: non-tender, supple Respiratory: Present: lungs clear, normal breath sounds, no respiratory distress. Absent: crackles, wheezing Cardiovascular/Chest: Present: regular rate, rhythm, no murmur Abdomen: Present: Normal bowel sounds, soft, nontender, nondistended, obese Skin Exam: Present: normal color, warm/dry Neurologic: Present: alert, normal mood/affect, oriented x 3 Appearance: Present: appropriate appearance, appropriate insight, neat Eye contact: Present: cooperative, good eye contact Assessment/Plan Plan Narrative: We will continue current treatment plan for her COVID-19 infection. Patient feels well and think she is starting to make improvements. Patient is on oxygen to maintain sats but it is being weaned and will continue to wean until she no longer needs it. Continue Decadron and aspirin. SCDs for DVT prophylaxis ordered. Of note patient did have 1 of 2+ blood cultures grow out a gram-positive bug which is most likely contaminant. Patient did have a white count, is been afebrile, and does not appear to have any systemic infection. Her procalcitonin was also negative. Will repeat CBC in the morning though initial lab work was negative for elevated white count. The rest the patient vital signs been stable. Incentive spirometry ordered to help open of her lung space. Patient was in agreement the treatment plan and may be discharged home tomorrow pending her weaning of her oxygen requirement. Nurse will call questions or concerns. - Problems/Diagnosis (1) COVID-19 Problem: Acute (2) Hypoxemia Problem: Acute (3) Hypertension Problem: Acute (4) Diabetes Problem: Acute (5) Hyperlipidemia Problem: Acute
[2020-07-27] MEDS: LORATADINE 10 MG TABLET PO SCH (21:55)
[2020-07-27] MEDS: ROSUVASTATIN CALCIUM 10 MG TABLET PO SCH (21:55)
[2020-07-27] MEDS: MONTELUKAST SODIUM 10 MG TABLET PO SCH (21:55)
[2020-07-28 06:45] LABS: Hematocrit 37.4 % (37.0-47.0); Hemoglobin 11.6 gm/dL (12.5-16.0); Mean Cell Volume 89.5 fl (78-100); Mean Corpuscular Hemoglobin 27.8 pg (27-31); Mean Platelet Volume 8.6 fl (8-12.5); Platelet Count 297 K/mm3 (150-450); Red Blood Count 4.18 M/mm3 (4.2-5.4); Red Cell Distribution Width 13.8 % (11.5-14.0); White Blood Count 11.6 K/mm3 (4.0-10.5)
[2020-07-28 06:58] LABS: Albumin * 2.5 gm/dl (3.4-5.0); Anion Gap 12.2 mmol/L (6.8-13.8); BUN/Creatinine Ratio 28.1 (9.0-21.6); Bilirubin, Total 0.5 mg/dL (0.0-1.1); Ca. Corrected For Albumin 9.9 mg/dL (8.4-10.2); Carbon Dioxide 23.8 mmol/L (24-32.6); Total Protein 7.1 gm/dL (6.2-8.2)
[2020-07-28 07:03] LABS: Total Cells Counted 100
[2020-07-28 07:06] LABS: Atypical (Reactive) Lymph 1 % (0-2); Lymphocyte 6 % (20-51); Monocyte 4 % (0-9); Neutrophil 89 % (42-75); Neutrophil # 10.3 K/mm3 (1.3-6.0)
[2020-07-28 07:08] LABS: Platelet Estimate Normal (NORMAL); RBC Morphology Normal (NORMAL)
[2020-07-28] MEDS: PANTOPRAZOLE SODIUM 20 MG TABLET.DR PO SCH (07:11)
[2020-07-28] MEDS: ALBUTEROL SULFATE 200 PUFF INHALER IH PRN ×2 (09:10→20:33)
[2020-07-28] MEDS: DEXAMETHASONE 2 MG TABLET PO SCH (09:10)
[2020-07-28] MEDS: METOPROLOL SUCCINATE 50 MG TABLET.SA PO SCH (09:11)
[2020-07-28] MEDS: FUROSEMIDE 20 MG TABLET PO SCH (09:11)
[2020-07-28] MEDS: ASPIRIN 325 MG TABLET.DR PO SCH (09:19)
--- NOTE | 2020-07-28 19:02 | PN ---
Subjective - Date and Time Seen Date: 07/28/20 Time: 19:02 Subjective Narrative: Patient had a rough morning, became hypoxic requiring high flow oxygen to bring her sats up. This evening she looks much better and she is maintained sats in the upper 90s on high flow oxygen at 8 L but is breathing much easier. Her only concern this time is dry eyes. She feels well she is been afebrile. No other concerns at this time. She is on aspirin and Decadron Objective - Review of Systems Generalized/Overall Review: Reports: No Symptoms Reported EENTM: Reports: Other - Dry eyes Respiratory: Reports: Cough, Shortness of Breath Cardiac: Reports: No Symptoms Reported Abdominal: Reports: No Symptoms Reported Genitourinary Symptoms: Reports: No Symptoms Reported Musculoskeletal Complaints: Reports: No Symptoms Reported Neurological: Reports: No Symptoms Reported Skin: Reports: No Symptoms Reported Endocrine: Reports: No Symptoms Reported - Vitals Vitals: Last Vital Signs Temp 36.6 C 07/28/20 18:06 Pulse 92 07/28/20 18:06 Resp 20 07/28/20 18:06 BP 129/74 07/28/20 18:06 Pulse Ox 98 07/28/20 18:06 - Abnormal Lab Findings Abnormal Lab Findings: Abnormal Lab Results 07/28/20 07/28/20 Range/Units 06:50 07:00 WBC 11.6 H D (4.0-10.5) K/mm3 RBC 4.18 L (4.2-5.4) M/mm3 Hgb 11.6 L (12.5-16.0) gm/dL MCHC 31.0 L (32-36) g/dl Neutrophils % (Manual) 89 H (42-75) % Lymphocytes % (Manual) 6 L (20-51) % Neutrophils # (Manual) 10.3 H (1.3-6.0) K/mm3 Lymphocytes # (Manual) 0.7 L (1.5-3.5) k/mm3 Chloride 110 H (97-106) mmol/L Carbon Dioxide 23.8 L (24-32.6) mmol/L BUN 27 H D (3-23) mg/dL BUN/Creatinine Ratio 28.1 H (9.0-21.6) AST 64 H (0-48) U/L Albumin 2.5 L (3.4-5.0) gm/dl - Exam Constitutional: Present: Alert, Oriented x3, Cooperative, Elderly, Obese Neck: Present: non-tender, supple Respiratory: Present: lungs clear, normal breath sounds, decreased breath sounds - Bases Cardiovascular/Chest: Present: regular rate, rhythm, no murmur Abdomen: Present: Normal bowel sounds, soft, nontender, nondistended Skin Exam: Present: normal color, warm/dry Appearance: Present: appropriate appearance, appropriate insight Eye contact: Present: cooperative, good eye contact Thoughts: Present: normal thought pattern, normal mood /affect Assessment/Plan Plan Narrative: 74-year-old female here for acute hypoxic respiratory failure secondary to COVID-19 pneumonia. Patient's clinical picture is waxing and waning but currently she feels well on high flow oxygen and will start to wean her as tolerated. Continue Decadron and aspirin. Patient is comfortable tonight, discussed using her incentive spirometer which she is not doing well. She feels like taking deep breaths on her own is enough which I explained to her that she she needs to use the breathing tube as directed to keep her airway open and help oxygen moving. Patient states understanding to this. We will also order duo nebs to be used as needed as she does have asthma and this may be beneficial for her. Patient vital signs otherwise have been stable and she been afebrile. Patient does have dry eyes and is wanting eyedrops, this was ordered for today. Otherwise continue current treatment plan, nurse to call questions or concerns. - Problems/Diagnosis (1) COVID-19 Problem: Acute (2) Hypoxemia Problem: Acute (3) Hypertension Problem: Acute (4) Diabetes Problem: Acute (5) Hyperlipidemia Problem: Acute
[2020-07-28] MEDS ORDERED: TETRAHYDROZOLINE HCL OP PRN (19:18)
[2020-07-28] MEDS ORDERED: ALBUTEROL SULFATE/IPRATROPIUM 3 ML NEBU IH PRN (19:19)
[2020-07-28] MEDS: LORATADINE 10 MG TABLET PO SCH (20:33)
[2020-07-28] MEDS: MONTELUKAST SODIUM 10 MG TABLET PO SCH (20:33)
[2020-07-28] MEDS: ROSUVASTATIN CALCIUM 10 MG TABLET PO SCH (20:33)
[2020-07-29] MEDS: PANTOPRAZOLE SODIUM 20 MG TABLET.DR PO SCH (07:26)
[2020-07-29] MEDS: DEXAMETHASONE 2 MG TABLET PO SCH (10:38)
[2020-07-29] MEDS: METOPROLOL SUCCINATE 50 MG TABLET.SA PO SCH (10:38)
[2020-07-29] MEDS: ASPIRIN 325 MG TABLET.DR PO SCH (10:38)
[2020-07-29] MEDS: FUROSEMIDE 20 MG TABLET PO SCH (10:38)
[2020-07-29] MEDS: ALBUTEROL SULFATE 200 PUFF INHALER IH PRN (10:42)
[2020-07-29] MEDS: hydrOXYzine HCL 25 MG TABLET PO PRN (14:02)
--- NOTE | 2020-07-29 19:44 | PN ---
Subjective - Date and Time Seen Date: 07/29/20 Time: 19:43 Subjective Narrative: Patient had no acute events overnight but she has required a liters of high flow oxygen during the day. Patient has been short of breath with ambulation but otherwise states she started to feel much better feel that she is breathing easier. Today when I saw her I turned her oxygen down to 2 L high flow oxygen and she tolerated that very well. She did not drop below 95%. She denies c ough, fever, abdominal pain, nausea vomiting. She did have some anxiety earlier when she felt her brother had a heart attack today and was given hydroxyzine which worked well for her. Currently she feels great and has no concerns. Her brother is doing well. Objective - Review of Systems Generalized/Overall Review: Denies: Weakness, Chills, Fever EENTM: Reports: No Symptoms Reported Respiratory: Reports: Shortness of Breath. Denies: Cough Cardiac: Reports: No Symptoms Reported Abdominal: Reports: No Symptoms Reported Genitourinary Symptoms: Reports: No Symptoms Reported Neurological: Reports: No Symptoms Reported Skin: Reports: No Symptoms Reported Endocrine: Reports: No Symptoms Reported - Vitals Vitals: Last Vital Signs Temp 36.2 C 07/29/20 17:40 Pulse 80 07/29/20 17:40 Resp 16 07/29/20 17:40 BP 130/82 07/29/20 17:40 Pulse Ox 95 07/29/20 19:37 - Exam Constitutional: Present: Alert, Oriented x3, Cooperative, Elderly, Obese Neck: Present: non-tender, supple Respiratory: Present: lungs clear, normal breath sounds Cardiovascular/Chest: Present: regular rate, rhythm, no murmur Abdomen: Present: soft, nontender, nondistended Extremity: Present: no pedal edema Skin Exam: Present: normal color, warm/dry Appearance: Present: appropriate appearance, appropriate insight Eye contact: Present: cooperative, good eye contact Thoughts: Present: normal thought pattern, normal mood /affect Assessment/Plan Plan Narrative: We will continue the course with her treatment. Did wean her high flow oxygen down to 2 L and will monitor her. The nurses will check understanding. She did not drop below 95% for over 5 minutes we had a discussion though that is a good sign. She feels that she is doing much better and is wanting to improve decision to home. Continue Decadron and aspirin. Continue incentive spirometry. No other changes to current treatment plan. Nurse will call questions or concerns. - Problems/Diagnosis (1) COVID-19 Problem: Acute (2) Hypoxemia Problem: Acute (3) Hypertension Problem: Acute (4) Diabetes Problem: Acute (5) Hyperlipidemia Problem: Acute
[2020-07-29] MEDS: ROSUVASTATIN CALCIUM 10 MG TABLET PO SCH (20:37)
[2020-07-29] MEDS: MONTELUKAST SODIUM 10 MG TABLET PO SCH (20:38)
[2020-07-29] MEDS: LORATADINE 10 MG TABLET PO SCH (20:38)
[2020-07-30] MEDS: hydrOXYzine HCL 25 MG TABLET PO PRN (08:04)
[2020-07-30] MEDS: PANTOPRAZOLE SODIUM 20 MG TABLET.DR PO SCH (08:04)
[2020-07-30] MEDS: METOPROLOL SUCCINATE 50 MG TABLET.SA PO SCH (08:13)
[2020-07-30] MEDS: DEXAMETHASONE 2 MG TABLET PO SCH (08:13)
[2020-07-30] MEDS: ASPIRIN 325 MG TABLET.DR PO SCH (08:13)
[2020-07-30] MEDS: FUROSEMIDE 20 MG TABLET PO SCH (08:13)
[2020-07-30] MEDS: GLYCERIN/PROPYLENE GLYCOL 150 DROP BTL EACHEYE PRN (10:34)
[2020-07-30] MEDS: ACETAMINOPHEN 325 MG TABLET PO PRN (16:06)
[2020-07-30] MEDS: ROSUVASTATIN CALCIUM 10 MG TABLET PO SCH (20:41)
[2020-07-30] MEDS: LORATADINE 10 MG TABLET PO SCH (20:41)
[2020-07-30] MEDS: MONTELUKAST SODIUM 10 MG TABLET PO SCH (20:41)
--- NOTE | 2020-07-30 22:17 | PN ---
Subjective - Date and Time Seen Date: 07/30/20 Time: 22:12 Subjective Narrative: She feels better today then she did yesterday. She is still having issues with her breathing though and desats quickly and takes awhile to recover. She feels better though. She is sitting in her chair tonight, she is using the cornette often. Her lungs sound better. She is still requiring 6 L high flow oxygen though to maintain sats. She is afebrile. Objective - Review of Systems Generalized/Overall Review: Denies: Weakness, Chills, Fever EENTM: Reports: No Symptoms Reported Respiratory: Reports: Cough, Shortness of Breath Cardiac: Reports: No Symptoms Reported Abdominal: Reports: No Symptoms Reported Genitourinary Symptoms: Reports: No Symptoms Reported Musculoskeletal Complaints: Reports: No Symptoms Reported Neurological: Reports: No Symptoms Reported Skin: Reports: No Symptoms Reported Endocrine: Reports: No Symptoms Reported - Vitals Vitals: Last Vital Signs Temp 36.5 C 07/30/20 21:56 Pulse 68 07/30/20 21:56 Resp 26 H 07/30/20 21:56 BP 143/71 07/30/20 21:56 Pulse Ox 95 07/30/20 21:56 - Exam Constitutional: Present: Alert, Oriented x3, Elderly, Morbidly obese Neck: Present: non-tender, supple Respiratory: Present: lungs clear, normal breath sounds. Absent: crackles, wheezing Cardiovascular/Chest: Present: regular rate, rhythm, no murmur Abdomen: Present: Normal bowel sounds, soft, nontender, nondistended Extremity: Present: non-tender, lower extremity edema Skin Exam: Present: normal color, warm/dry Appearance: Present: appropriate appearance, appropriate insight Eye contact: Present: cooperative, good eye contact Thoughts: Present: normal thought pattern, normal mood /affect Assessment/Plan Plan Narrative: Will continue current tx plan. Treat hypoxia with HF o2. Continue decadron and aspirin. She is using the cornette often. Also working with the IS. Aside from the hypoxia her vitals are stable. Repeat BMP in the morning. Otherwise we will continue to try and wean her off of oxygen and get her moving more. Nurse to call with questions or concenrs. - Problems/Diagnosis (1) COVID-19 Problem: Acute (2) Hypoxemia Problem: Acute (3) Hypertension Problem: Acute (4) Diabetes Problem: Acute (5) Hyperlipidemia Problem: Acute
[2020-07-31 07:50] LABS: Anion Gap 12.9 mmol/L (6.8-13.8); BUN/Creatinine Ratio 32.4 (9.0-21.6); Calcium * 9.1 mg/dL (7.9-10.9); Carbon Dioxide 25.6 mmol/L (24-32.6); Estimated Creat Clear 40.6; Potassium 4.5 mmol/L (3.4-4.6)
[2020-07-31] MEDS: PANTOPRAZOLE SODIUM 20 MG TABLET.DR PO SCH (09:59)
[2020-07-31] MEDS: ASPIRIN 325 MG TABLET.DR PO SCH (09:59)
[2020-07-31] MEDS: DEXAMETHASONE 2 MG TABLET PO SCH (10:00)
[2020-07-31] MEDS: METOPROLOL SUCCINATE 50 MG TABLET.SA PO SCH (10:01)
[2020-07-31] MEDS: FUROSEMIDE 20 MG TABLET PO SCH (10:01)
[2020-07-31] MEDS: hydrOXYzine HCL 25 MG TABLET PO PRN ×2 (10:12→21:43)
[2020-07-31] MEDS: GLYCERIN/PROPYLENE GLYCOL 150 DROP BTL EACHEYE PRN (15:17)
--- NOTE | 2020-07-31 21:35 | PN ---
Subjective - Date and Time Seen Date: 07/31/20 Time: 21:19 Subjective Narrative: She is comfortable. Feels better. Anxiety is better today. Her o2 requirement is decreasing. Vitals stable and she is afebrile. Objective - Review of Systems Generalized/Overall Review: Denies: Weakness, Chills, Fever EENTM: Reports: No Symptoms Reported Respiratory: Reports: Cough, Shortness of Breath. Denies: Wheezing Cardiac: Reports: No Symptoms Reported Abdominal: Denies: Nausea, Vomiting Genitourinary Symptoms: Reports: No Symptoms Reported Musculoskeletal Complaints: Reports: No Symptoms Reported Neurological: Reports: No Symptoms Reported Skin: Reports: No Symptoms Reported Endocrine: Reports: No Symptoms Reported - Vitals Vitals: Last Vital Signs Temp 36.6 C 07/31/20 17:43 Pulse 88 07/31/20 17:43 Resp 22 H 07/31/20 17:43 BP 122/70 07/31/20 17:43 Pulse Ox 99 07/31/20 17:43 - Abnormal Lab Findings Abnormal Lab Findings: Abnormal Lab Results 07/31/20 Range/Units 07:30 BUN 33 H (3-23) mg/dL Est GFR (Non-Af Amer) 56 L (60-130) mL/min BUN/Creatinine Ratio 32.4 H (9.0-21.6) - Exam Constitutional: Present: Alert, Oriented x3, Cooperative, Elderly, Morbidly obese ENT Exam: Present: hearing grossly normal Neck: Present: non-tender, supple Respiratory: Present: no respiratory distress, no accessory muscle use, rhonchi Cardiovascular/Chest: Present: regular rate, rhythm, no murmur Abdomen: Present: soft, nontender, nondistended, other - ostomy Extremity: Absent: leg cramps, lower extremity edema Skin Exam: Present: normal color, warm/dry Neurologic: Present: alert, normal mood/affect, oriented x 3 Appearance: Present: appropriate appearance, appropriate insight Thoughts: Present: normal thought pattern, normal mood /affect Assessment/Plan Plan Narrative: Patient is stable from a respiratory stand point. Still requiring o2 therapy but no longer on high flow oxygen. She is currently on 5 liters NS and sats are well maintained. Still desats with activity. Continue decadron. Continue ASA. Breathing txs as needed. Maintain sats above 90%, wean oxygen as tolerated. Blood sugars well controlled. HTN well managed. Continue current tx plan. Call with questions or concerns. - Problems/Diagnosis (1) COVID-19 Problem: Acute (2) Hypoxemia Problem: Acute (3) Hypertension Problem: Acute (4) Diabetes Problem: Acute (5) Hyperlipidemia Problem: Acute
[2020-07-31] MEDS: LORATADINE 10 MG TABLET PO SCH (21:43)
[2020-07-31] MEDS: ROSUVASTATIN CALCIUM 10 MG TABLET PO SCH (21:43)
[2020-07-31] MEDS: MONTELUKAST SODIUM 10 MG TABLET PO SCH (21:43)
[2020-08-01] MEDS: hydrOXYzine HCL 25 MG TABLET PO PRN (04:20)
[2020-08-01] MEDS: FUROSEMIDE 20 MG TABLET PO SCH (07:59)
[2020-08-01] MEDS: DEXAMETHASONE 2 MG TABLET PO SCH (08:00)
[2020-08-01] MEDS: METOPROLOL SUCCINATE 50 MG TABLET.SA PO SCH (08:00)
[2020-08-01] MEDS: ASPIRIN 325 MG TABLET.DR PO SCH (08:00)
[2020-08-01] MEDS: PANTOPRAZOLE SODIUM 20 MG TABLET.DR PO SCH (08:00)
--- NOTE | 2020-08-01 09:00 | PN ---
Subjective - Date and Time Seen Date: 08/01/20 Time: 08:59 Subjective Narrative: She is 1 week from start of her symptoms. She says she feels better this morning- less SOB/cough. Objective - Review of Systems Generalized/Overall Review: Denies: Chills, Fever EENTM: Denies: Blurred Vision, Double Vision Respiratory: Reports: Cough, Shortness of Breath. Denies: Orthopnea Cardiac: Denies: Chest Pain, Edema, Palpitations Abdominal: Denies: Nausea, Vomiting, Hematemesis Genitourinary Symptoms: Denies: Urgency, Frequency Musculoskeletal Complaints: Denies: Joint Pain, Joint Swelling Neurological: Denies: Headache Skin: Denies: Lesions, Rash Misc: All systems neg except as marked - Vitals Vitals: Last Vital Signs Temp 36.3 C 08/01/20 07:00 Pulse 77 08/01/20 08:00 Resp 18 08/01/20 07:00 BP 132/78 08/01/20 08:00 Pulse Ox 95 08/01/20 07:00 - Exam Constitutional: Present: Alert, Oriented x3, Cooperative, Obese ENT Exam: Present: hearing grossly normal Neck: Present: supple. Absent: lymphadenopathy (R), lymphadenopathy (L) Respiratory: Present: decreased breath sounds, crackles, No wheezing Cardiovascular/Chest: Present: regular rate, rhythm, no JVD, no murmur Abdomen: Present: Normal bowel sounds, nontender, obese Extremity: Present: no calf tenderness, pedal edema Assessment/Plan Plan Narrative: Tatum was admitted for shortness of breath and hypoxemia from Covid pneumonia. She is receiving her dexamethasone. She is improving and needing only low-flow oxygen via nasal cannula. We will continue with her present management and current medications. We will change her Accu-Cheks to q. before meals with Humalog coverage following low-dose protocol. - Problems/Diagnosis (1) COVID-19 Problem: Acute (2) Pneumonia Problem: Acute (3) Diabetes Problem: Acute (4) Hyperlipidemia Problem: Acute (5) Hypertension Problem: Acute (6) Hypoxemia Problem: Acute
[2020-08-01] MEDS: INSULIN LISPRO 100 UNITS/ML VIAL SC SCH ×2 (12:17→16:10)
[2020-08-01] MEDS: LORATADINE 10 MG TABLET PO SCH (20:33)
[2020-08-01] MEDS: MONTELUKAST SODIUM 10 MG TABLET PO SCH (20:33)
[2020-08-01] MEDS: ROSUVASTATIN CALCIUM 10 MG TABLET PO SCH (20:33)
[2020-08-02] MEDS: INSULIN LISPRO 100 UNITS/ML VIAL SC SCH ×3 (07:48→17:18)
[2020-08-02] MEDS: METOPROLOL SUCCINATE 50 MG TABLET.SA PO SCH ×2 (07:49→08:23)
[2020-08-02] MEDS: FUROSEMIDE 20 MG TABLET PO SCH ×2 (07:49→08:23)
[2020-08-02] MEDS: DEXAMETHASONE 2 MG TABLET PO SCH ×2 (07:49→08:23)
[2020-08-02] MEDS: PANTOPRAZOLE SODIUM 20 MG TABLET.DR PO SCH (07:49)
[2020-08-02] MEDS: ASPIRIN 325 MG TABLET.DR PO SCH ×2 (07:49→08:23)
--- NOTE | 2020-08-02 10:41 | PN ---
Subjective - Date and Time Seen Date: 08/02/20 Time: 10:34 Subjective Narrative: Feeling better today. Has been doing 2 L NC to keep sats above 90%. had episode of sats going down to the upper 80's early in the morning but recovered quickly. Objective - Review of Systems Generalized/Overall Review: Denies: Chills, Fever EENTM: Denies: Blurred Vision, Double Vision Respiratory: Reports: Cough - Improved, Shortness of Breath - Improved. Denies: Orthopnea Cardiac: Denies: Chest Pain, Edema, Palpitations Abdominal: Denies: Nausea, Vomiting, Abdominal Pain Genitourinary Symptoms: Denies: Urgency, Frequency Musculoskeletal Complaints: Denies: Joint Pain Neurological: Denies: Headache Skin: Denies: Lesions, Rash Misc: All systems neg except as marked - Vitals Vitals: Last Vital Signs Temp 36.3 C 08/02/20 06:00 Pulse 70 08/02/20 07:49 Resp 22 H 08/02/20 06:00 BP 152/61 H 08/02/20 07:49 Pulse Ox 90 L 08/02/20 06:00 - Exam Constitutional: Present: Alert, Oriented x3, Cooperative, Morbidly obese ENT Exam: Present: hearing grossly normal Neck: Present: supple. Absent: lymphadenopathy (R), lymphadenopathy (L) Respiratory: Present: decreased breath sounds, No rales, No wheezing Cardiovascular/Chest: Present: regular rate, rhythm, no JVD, no murmur Abdomen: Present: Normal bowel sounds, soft, nontender, obese Extremity: Present: no calf tenderness, pedal edema Skin Exam: Present: warm/dry Assessment/Plan Plan Narrative: Tatum was admitted for Covid pneumonia with hypoxia. She is requiring less and less of oxygen. She is wanting to go home tomorrow. I will leave it up to her PCP in the morning. She might be sent home with home oxygen on a as needed basis. - Problems/Diagnosis (1) COVID-19 Problem: Acute (2) Pneumonia Problem: Acute (3) Diabetes Problem: Acute (4) Hyperlipidemia Problem: Acute (5) Hypertension Problem: Acute (6) Hypoxemia Problem: Acute
[2020-08-02] MEDS: MONTELUKAST SODIUM 10 MG TABLET PO SCH (20:25)
[2020-08-02] MEDS: LORATADINE 10 MG TABLET PO SCH (20:25)
[2020-08-02] MEDS: ROSUVASTATIN CALCIUM 10 MG TABLET PO SCH (20:25)
[2020-08-02] MEDS: GLYCERIN/PROPYLENE GLYCOL 150 DROP BTL EACHEYE PRN (22:18)
[2020-08-03 06:33] LABS: Hematocrit 40.6 % (37.0-47.0); Hemoglobin 12.8 gm/dL (12.5-16.0); Mean Cell Volume 87.1 fl (78-100); Mean Corpuscular Hemoglobin 27.5 pg (27-31); Mean Corpuscular Hgb Conc 31.5 g/dl (32-36); Platelet Count 521 K/mm3 (150-450); Red Blood Count 4.66 M/mm3 (4.2-5.4); Red Cell Distribution Width 13.5 % (11.5-14.0); White Blood Count 18.8 K/mm3 (4.0-10.5)
[2020-08-03 06:38] LABS: Total Cells Counted 100
[2020-08-03 06:39] LABS: BUN/Creatinine Ratio 34.8 (9.0-21.6)
[2020-08-03 06:40] LABS: Anion Gap 15.3 mmol/L (6.8-13.8); Calcium * 9.4 mg/dL (7.9-10.9); Carbon Dioxide 24.2 mmol/L (24-32.6); Potassium 4.5 mmol/L (3.4-4.6)
[2020-08-03] MEDS: INSULIN LISPRO 100 UNITS/ML VIAL SC SCH ×3 (06:42→16:34)
[2020-08-03 06:59] LABS: Band 1 % (0-2.0); Lymphocyte 6 % (20-51); Monocyte 4 % (0-9); Neutrophil 89 % (42-75); Neutrophil # 16.7 K/mm3 (1.3-6.0); Platelet Estimate Increased (NORMAL)
[2020-08-03 07:00] LABS: RBC Morphology Normal (NORMAL)
[2020-08-03] MEDS: PANTOPRAZOLE SODIUM 20 MG TABLET.DR PO SCH (07:29)
[2020-08-03] MEDS: DEXAMETHASONE 2 MG TABLET PO SCH (08:59)
[2020-08-03] MEDS: FUROSEMIDE 20 MG TABLET PO SCH (09:00)
[2020-08-03] MEDS: ASPIRIN 325 MG TABLET.DR PO SCH (09:00)
[2020-08-03] MEDS: METOPROLOL SUCCINATE 50 MG TABLET.SA PO SCH (09:00)
[2020-08-03] MEDS: ALBUTEROL SULFATE 200 PUFF INHALER IH PRN (09:00)
[2020-08-03] MEDS: hydrOXYzine HCL 25 MG TABLET PO PRN (09:15)
[2020-08-03] MEDS: GLYCERIN/PROPYLENE GLYCOL 150 DROP BTL EACHEYE PRN (20:34)
[2020-08-03] MEDS: ACETAMINOPHEN 325 MG TABLET PO PRN (20:40)
[2020-08-03] MEDS: LORATADINE 10 MG TABLET PO SCH (20:40)
[2020-08-03] MEDS: MONTELUKAST SODIUM 10 MG TABLET PO SCH (20:40)
[2020-08-03] MEDS: ROSUVASTATIN CALCIUM 10 MG TABLET PO SCH (20:40)
--- NOTE | 2020-08-03 20:58 | PN ---
Subjective - Date and Time Seen Date: 08/03/20 Time: 20:56 Subjective Narrative: Patient is resting comfortably this evening. She had a good day so far for oxygen requirements. Been mostly in 1 to 2 L. She does desat with movement but is responding much quicker now. Otherwise vital signs been stable and she is been afebrile. Likely discharge home tomorrow with oxygen. Objective - Review of Systems Generalized/Overall Review: Denies: Weakness, Chills, Fever EENTM: Reports: No Symptoms Reported Respiratory: Reports: Shortness of Breath - Much improved. Denies: Cough Cardiac: Reports: No Symptoms Reported Abdominal: Reports: No Symptoms Reported Genitourinary Symptoms: Reports: No Symptoms Reported Musculoskeletal Complaints: Reports: No Symptoms Reported Neurological: Reports: No Symptoms Reported Skin: Reports: No Symptoms Reported Endocrine: Reports: No Symptoms Reported - Vitals Vitals: Last Vital Signs Temp 36.7 C 08/03/20 18:41 Pulse 79 08/03/20 18:41 Resp 24 H 08/03/20 18:41 BP 105/61 08/03/20 18:41 Pulse Ox 94 08/03/20 18:45 - Abnormal Lab Findings Abnormal Lab Findings: Abnormal Lab Results 08/03/20 08/03/20 Range/Units 06:30 06:30 WBC 18.8 H (4.0-10.5) K/mm3 MCHC 31.5 L (32-36) g/dl Plt Count 521 H (150-450) K/mm3 Neutrophils % (Manual) 89 H (42-75) % Lymphocytes % (Manual) 6 L (20-51) % Neutrophils # (Manual) 16.7 H (1.3-6.0) K/mm3 Lymphocytes # (Manual) 1.1 L (1.5-3.5) k/mm3 Platelet Estimate Increased H (NORMAL) Anion Gap 15.3 H (6.8-13.8) mmol/L BUN 40 H (3-23) mg/dL Est GFR (Non-Af Amer) 49 L (60-130) mL/min BUN/Creatinine Ratio 34.8 H (9.0-21.6) Random Glucose 112 H (70-110) mg/dL - Exam Constitutional: Present: Alert, Oriented x3, Cooperative, Elderly, Obese Neck: Present: non-tender, supple Respiratory: Present: lungs clear, normal breath sounds. Absent: crackles, rales, rhonchi, wheezing Cardiovascular/Chest: Present: normal peripheral pulses, no murmur Abdomen: Present: Normal bowel sounds, soft, nontender, nondistended Skin Exam: Present: normal color, warm/dry Appearance: Present: appropriate appearance, appropriate insight Eye contact: Present: cooperative, good eye contact Thoughts: Present: normal thought pattern, normal mood /affect Assessment/Plan Plan Narrative: Significant improvement since her admission. Oxygen requirements much less and she is stable on 1 to 2 L. Patient will continue to receive Decadron and aspirin until she is discharged home, likely tomorrow. She will be discharged home with oxygen at the settings between 2 to 3 L. She also was discharged home tomorrow with home health. That the plan barring any unforeseen changes in her clinical picture. Continue current treatment plan. Nurse to call questions or concerns. - Problems/Diagnosis (1) COVID-19 Problem: Acute (2) Hypoxemia Problem: Acute (3) Hypertension Problem: Acute (4) Diabetes Problem: Acute (5) Hyperlipidemia Problem: Acute
[2020-08-04] MEDS: PANTOPRAZOLE SODIUM 20 MG TABLET.DR PO SCH (07:04)
[2020-08-04] MEDS: INSULIN LISPRO 100 UNITS/ML VIAL SC SCH ×2 (07:58→11:55)
[2020-08-04] MEDS: FUROSEMIDE 20 MG TABLET PO SCH (08:53)
[2020-08-04] MEDS: DEXAMETHASONE 2 MG TABLET PO SCH (08:53)
[2020-08-04] MEDS: METOPROLOL SUCCINATE 50 MG TABLET.SA PO SCH (08:54)
[2020-08-04] MEDS: ASPIRIN 325 MG TABLET.DR PO SCH (08:54)
--- NOTE | 2020-08-04 12:02 | DS ---
(1) COVID-19 Problem: Acute (2) Hypoxemia Problem: Acute (3) Hypertension Problem: Acute (4) Diabetes Problem: Acute (5) Hyperlipidemia Problem: Acute (6) Respiratory failure with hypoxia Problem: Resolved Date of Discharge:: 08/04/20 Hospital Course: 74-year-old female with history of hypertension, hyperlipidemia, morbid obesity, obstructive sleep apnea, and asthma presented to the hospital with acute respiratory failure and hypoxia secondary to COVID-19 pneumonia. Patient is in the sole white count was 5.8 and her procalcitonin was negative indicating likely no superimposed bacterial pneumonia. Her white count did increase throughout her stay though as patient was on Decadron daily for the Covid infection. The Decadron and oxygen therapy were the only treatment she was receiving while here for his infection aside from Patricia use an incentive spirometry use. She also had duo nebs ordered for her as needed and use them initially but has not required this for the last 5 days. She was not started on Lovenox due to adverse reaction to heparin in the past. She was given a full- strength aspirin which she took daily. While here her respiratory status waxed and waned initially but has significant improved over the last few days. At one point she was requiring 8 L of high flow oxygen to maintain sats into the mid 90s but upon discharge she was maintaining sats on 2 and 3 L nasal cannula. She will be discharged home with oxygen therapy titrated at 3 L to be worn until she is able to follow-up with her PCP. This will be weaned as soon as tolerated but even today patient desatted into the low 80s with ambulation to the toilet and back. She did respond quickly and was back up into the mid 90s within 30 seconds or so. Patient at this time denied symptoms and felt fine. Otherwise her stay here has been uneventful. Her vital signs been stable and she been afebrile. Patient is a diabetic and her blood sugars were monitored, they are well controlled as well. No changes to her chronic medications. Due to her chronic stay the patient is deconditioned and weak. Patient is homebound due to her recent COVID-19 infection and muscular deconditioning. Patient requires custodial for monitoring of her respiratory status, medication management, and vital sign monitoring. Patient requires physical therapy for endurance issues, gait and balance training, and ADL teaching to be safe while home. The need for home health skilled care services is directly related to the time spent [id number] with the patient. She will be discharged home on a consistent carbohydrate diet. Patient is able to follow-up with me within the next 1 to 2 weeks and then will have her establish with 1 my internal medicine partners thereafter. 1.5 hours critical care time spent with patient today, reviewing her lab work, reviewing her stay, reconciling medications, setting up home health, ordering oxygen for home use, setting up follow-up appointments, and completing this note. Procedures Performed: none Results and Findings: Lab Pending Results 07/25/20 16:05: Procalcitonin Less than 0.05 L 07/25/20 16:05: Sodium 140, Plasma Sodium 140, Potassium 3.7, Chloride 102, Carbon Dioxide 27.1, Anion Gap 14.6 H, BUN 13, Creatinine 1.17, Est GFR (Non-Af Amer) 48 L, BUN/Creatinine Ratio 11.1, Random Glucose 126 H, Calcium 8.9, Calcium Adj for Albumin 9.5, Total Bilirubin 0.6, AST 56 H, ALT 31, Alkaline Phosphatase 120, Troponin I Less than 0.017, C-Reactive Prot, Quant 12.5 H, B- Natriuretic Peptide 139, Total Protein 7.6, Albumin 2.8 L 07/25/20 16:05: D-Dimer 0.95 H 07/25/20 16:05: Lactic Acid, Venous 1.9 07/25/20 16:15: WBC 5.8, RBC 4.22, Hgb 11.7 L, Hct 37.6, MCV 89.1, MCH 27.7, MCHC 31.1 L, RDW 13.8, Plt Count 259, MPV 8.5, Immature Gran % (Auto) 0.50 H, Immature Gran # (Auto) 0.03, Neutrophils % 86.3 H, Lymphocytes % 7.1 L, Monocytes % 5.9, Eosinophils % 0.2, Basophils % 0.0, Nucleated RBC % 0.0, Neutrophils # 5.0, Lymphocytes # 0.41 L, Monocytes # 0.3, Eosinophils # 0.0, Absolute Basophils 0.0 07/25/20 17:29: SARS-CoV-2 (PCR) Detected H 07/28/20 06:50: Sodium 142, Plasma Sodium 142, Potassium 4.0, Chloride 110 H, Carbon Dioxide 23.8 L, Anion Gap 12.2, BUN 27 H D, Creatinine 0.96, Est GFR (Non-Af Amer) 61 D, BUN/Creatinine Ratio 28.1 H, Random Glucose 88 D, Calcium 9.0, Calcium Adj for Albumin 9.9, Total Bilirubin 0.5, AST 64 H, ALT 58, Alkaline Phosphatase 118, Total Protein 7.1, Albumin 2.5 L 07/28/20 07:00: WBC 11.6 H D, RBC 4.18 L, Hgb 11.6 L, Hct 37.4, MCV 89.5, MCH 27.8, MCHC 31.0 L, RDW 13.8, Plt Count 297, MPV 8.6, Neutrophils % (Manual) 89 H, Lymphocytes % (Manual) 6 L, Monocytes % (Manual) 4, Neutrophils # (Manual) 10.3 H, Lymphocytes # (Manual) 0.7 L, Monocytes # (Manual) 0.5, Atypic/Reactive Lymphs 1, Platelet Estimate Normal, RBC Morphology Normal 07/31/20 07:30: Sodium 140, Plasma Sodium 140, Potassium 4.5, Chloride 106, Carbon Dioxide 25.6, Anion Gap 12.9, BUN 33 H, Creatinine 1.02, Est GFR (Non-Af Amer) 56 L, BUN/Creatinine Ratio 32.4 H, Random Glucose 98, Calcium 9.1 08/03/20 06:30: WBC 18.8 H, RBC 4.66, Hgb 12.8, Hct 40.6, MCV 87.1, MCH 27.5, MCHC 31.5 L, RDW 13.5, Plt Count 521 H, MPV 9.0, Neutrophils % (Manual) 89 H, Band Neuts % (Manual) 1, Lymphocytes % (Manual) 6 L, Monocytes % (Manual) 4, Neutrophils # (Manual) 16.7 H, Lymphocytes # (Manual) 1.1 L, Monocytes # (Manual) 0.8, Platelet Estimate Increased H, RBC Morphology Normal 08/03/20 06:30: Sodium 138, Plasma Sodium 138, Potassium 4.5, Chloride 103, Carbon Dioxide 24.2, Anion Gap 15.3 H, BUN 40 H, Creatinine 1.15, Est GFR (Non- Af Amer) 49 L, BUN/Creatinine Ratio 34.8 H, Random Glucose 112 H, Calcium 9.4 Discharge Location: Home Disposition: Home Health Service Home Health Agency: [facility] Home Health Condition: Fair Discharge Activity: Activity as tolerated Discharge Diet: Consistent carbs Referrals: Mavis Sauceda MD [Primary Care Provider] - One Week Additional Patient Instructions (free text): Home Health at discharge, pt would like [facility] Home Health. If needs Oxygen would like to use [facility] in [place]. Complete Home Medications List: Complete Home Medication List: Cetirizine HCl [Zyrtec] 10 mg PO HS 03/23/12 Furosemide [Lasix] 20 mg PO DAILY 03/23/12 Albuterol Sulfate [Proair Hfa] 1 - 2 puff IH Q6H PRN 01/13/14 Blood Sugar Diagnostic, Drum [Accu-Chek Compact Plus Strips] 1 ea MC DAILY 01/13/14 Calcium Carbonate/Vitamin D3 [Calcium 600 + Vit D 400 Tablet] 1 tab PO BID 01/13/14 Montelukast Sodium [Singulair] 10 mg PO HS 06/20/14 Aspirin [Aspirin Enteric Coated] 325 mg PO DAILY 12/05/14 Atorvastatin Calcium [Lipitor] 20 mg PO DAILY 05/22/15 Ibuprofen [Motrin] 200 mg PO BID PRN 05/22/15 Ascorbic Acid [Vitamin C with Pearl Hips] 1,000 mg PO DAILY 10/31/16 Cholecalciferol (Vitamin D3) [Vitamin D3] 1,000 unit PO DAILY 10/31/16 Cyanocobalamin [Vitamin B-12] 1,000 mcg PO DAILY 10/31/16 Multivitamins [Multivitamin Mikey] 1 cap PO DAILY 10/31/16 Omeprazole Magnesium 20 mg PO DAILY 10/31/16 Potassium 99 mg PO DAILY 10/31/16 metoprolol succinate 50 mg tablet,extended release 24 hr 50 mg PO DAILY 01/08/19 vit C-vit [id number] 3 100 mg-15 unit-2 mg-100 mg capsule 1 cap PO DAILY cap 05/20/19 fluticasone propionate 50 mcg/actuation nasal spray,suspension 1 spray REGGIE DAILY PRN 06/27/19 Forms: Patient Portal Registration
[2020-08-04 13:29] VITALS: BP 127/70
== END 2020-08-04 13:45 | disposition home health service (06) | DRG 177 ==
LOC: ER 15:26 → MS 19:39
PROVIDERS: ADMIT Family Medicine; ATTEND Family Medicine